=== PATIENT | female | born 1950 | race Caucasian/White ===

== ENCOUNTER 2020-11-29 21:04 | Emergency (ER) | payer MEDICARE, OTHER ==
[~2020-11-29 21:04] MED LIST: ATIVAN0.5 MG PO; AUGMENTIN 875-1 EACH PO; AZILECT1 MG PO; IBUPROFEN800 MG PO; K-DUR TAB 20 M20 MEQ PO; LASIX40 MG PO; LEXAPRO20 MG PO; LOTREL 10-20 M1 EACH PO; NORVASC10 MG PO; PHENERGAN 25 MG25 M1 PO; PRAVACHOL40 MG PO; REQUIP XL8 MG PO; REQUIP0.5 MG PO; SINEMET 10-1001 EACH PO; STALEVO PO; ULTRAM50 MG PO; ZANAFLEX4 MG PO
[2020-11-29 23:22] LABS: HEMOGLOBIN 12.6 gm/dl (12.3-15.3); RED BLOOD COUNT 4.11 M/UL (4.00-5.10); WHITE BLOOD COUNT 7.9 K/UL (4.5-11.0)
[2020-11-29 23:42] LABS: BUN/CREATININE RATIO 25 (0-10)
== END 2020-11-30 01:39 | disposition home or self-care (01) ==
LOC: ER1 21:04
PROVIDERS: Physician Assistant
DX: M62.838 Other muscle spasm (principal); G24.9 Dystonia, unspecified; G20 Parkinson's disease; E78.5 Hyperlipidemia, unspecified; I10 Essential (primary) hypertension
CPT/HCPCS: 80053; 81001; 82550; 82553; 83874; 84484; 85025; 87086; 96374; 96375; 99283; J1200; J3360